=== PATIENT | male | born 1980 | race Caucasian/White ===

== ENCOUNTER 2018-05-02 11:57 | Inpatient (IN) | payer OTHER ==
[2018-05-02 15:23] VITALS: BMI 25.1
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
[2018-05-02] MEDS ORDERED: MAGNESIUM HYDROX 2400MG/30ML ORAL SUSPENSION 30 ML CUP PO PRN (20:20)
[2018-05-02] MEDS ORDERED: NICOTINE POLACRILEX 2 MG GUM BUC PRN (20:20)
[2018-05-02] MEDS ORDERED: MAG HYDROX/AL HYDROX/SIMETH 30 ML UNIT-DOSE CUP PO PRN (20:20)
[2018-05-02] MEDS ORDERED: ACETAMINOPHEN 325 MG TABLET (FP) PO PRN (20:20)
[2018-05-02] MEDS ORDERED: MENTHOL/PHENOL 1 EACH UD MM PRN (20:20)
[2018-05-02] MEDS ORDERED: chlordiazePOXIDE HCL 25 MG CAPSULE PO PRN (20:20)
[2018-05-02] MEDS ORDERED: P-EPHED 60MG/TRIPROLIDI 2.5MG TABLET PO PRN (20:20)
[2018-05-02] MEDS ORDERED: LOPERAMIDE HCL 2 MG CAPSULE PO PRN (20:20)
[2018-05-02] MEDS ORDERED: guaiFENesin/D-METHORPHAN HB 10 ML UNIT-DOSE CUPS PO PRN (20:20)
[2018-05-02] MEDS ORDERED: IBUPROFEN 400 MG TABLET (FP) PO PRN (20:20)
[2018-05-02] MEDS ORDERED: hydrOXYzine PAMOATE 50 MG CAPSULE (FP) PO PRN (20:20)
[2018-05-02] MEDS ORDERED: MAGNESIUM CITRATE 300 ML BOTTLE PO PRN (20:20)
[2018-05-02] MEDS ORDERED: MELATONIN 5 MG TABLETS PO PRN (22:00)
[2018-05-02] MEDS: chlordiazePOXIDE HCL 25 MG CAPSULE PO SCH (22:42)
[2018-05-02] MEDS: THIAMINE HCL 100 MG TABLET (FP) PO SCH (22:42)
[2018-05-03 02:57] LABS: URINE APPEARANCE CLOUDY; URINE BILIRUBIN NEGATIVE (<2.0 mg/dL); URINE COLOR YELLOW; URINE GLUCOSE (UA) NEGATIVE (NEGATIVE); URINE KETONE NEGATIVE (NEGATIVE); URINE LEUK ESTERASE NEGATIVE (NEGATIVE); URINE NITRITE NEGATIVE (NEGATIVE); URINE PROTEIN NEGATIVE (NEGATIVE)
[2018-05-03] MEDS: chlordiazePOXIDE HCL 25 MG CAPSULE PO SCH ×4 (05:16→22:23)
--- NOTE | 2018-05-03 08:09 | CONSULT ---
[facility] Psychiatric Consult - Data Date of interview: 05/03/18 Admission source: [facility] Identifying data: This is 38 years old male, single, nomeless, unemployed with no income, with history of psychiatrric hospitalizations, history of Schizophrenia, history of Alcohol, Cocaine, K-2, Nicotine and PCP dependence. Patient reports Alcohol withdrawal symptoms and seeking for detox. Substance Abuse History: Urine Drug Screen Results: AIDE-Cocaine, PCP- Phencyclidine. Smoking history: Current every day smoker. Have you smoked in the past 12 months: Yes. Aproximately how many cigarettes per day: 10. Cigars Per Day: 0. Initiated information on smoking cessation: Yes. 'Breaking Loose' booklet given: 05/02/18. - Substance & Tx. History. Hx Alcohol Use: Yes. Hx Substance Use: Yes. Substance Use Type: Alcohol, Cocaine, Tranquilizers (PCP). Hx Substance Use Treatment: Yes ([facility]). - Substances Abused. Alcohol. Route: Oral. Frequency: Daily. Amount used: 6 PACKS. Age of first use: 18. Date of Last Use: 05/02/18. K2. Route: Smoking. Frequency: Daily. Amount used: 2 BLUNTS. Age of first use: 21. Date of Last Use: . COCAINE. Route: Inhalation. Frequency: 1-2 times per week. Amount used: 1/2 GM. Age of first use: 16. Date of Last Use: 04/26/18 Medical History: Stuttering Psychiatric History: Patient reports to carry Schizophrenia with most recent psychiatric admission on 2 months ago for few days at [facility] for safety, reports taking prior to admission: Seroquel 300mg po qhs. \Patient denies suicidal and homicidal history, as per compuiter there is a hsuicidal unclear history. Physical/Sexual Abuse/Trauma History: Denies Additional Comment: Urine Drug Screen Results: AIDE-Cocaine, PCP-Phencyclidine. Seroquel 300mg po qhs Mental Status Exam - Mental Status Exam Alert and Oriented to: Person Cognitive Function: Fair Patient Appearance: Unkempt Mood: Sad Affect: Flat Patient Behavior: Sedated Speech Pattern: Delayed Voice Loudness: Mildly Soft/Quiet Thought Process: Goal Oriented Thought Disorder: Being Controlled Hallucinations: Denies Suicidal Ideation: Denies Homicidal Ideation: Denies Insight/Judgement: Fair Sleep: Difficulty falling asleep Appetite: Fair Muscle strength/Tone: Mild Hypotonicity Gait/Station: Shuffling Additional Comments: Seroquel 300mg po qhs Psychiatric Findings - Problem List ([place] 1, 2,3) (1) Schizophrenia Current Visit: Yes Status: Suspected (2) Opioid dependence with withdrawal Current Visit: Yes Status: Acute (3) Cocaine abuse, uncomplicated Current Visit: Yes Status: Chronic (4) Nicotine dependence Current Visit: Yes Status: Chronic Qualifiers: Nicotine product type: cigarettes Substance use status: uncomplicated Qualified Code(s): F17.210 - Nicotine dependence, cigarettes, uncomplicated (5) PCP (phencyclidine) abuse Current Visit: Yes Status: Chronic (6) Stuttering Current Visit: Yes Status: Chronic (7) Substance induced mood disorder Current Visit: Yes Status: Suspected (8) Substance-induced sleep disorder Current Visit: Yes Status: Suspected - Initial Treatment Plan Initial Treatment Plan: Seroquel 300mg po qhs
--- NOTE | 2018-05-03 10:30 | EKG ---
Test Reason : Blood Pressure : / mmHG Vent. Rate : 070 BPM Atrial Rate : 070 BPM P-R Int : 130 ms QRS Dur : 082 ms QT Int : 434 ms P-R-T Axes : 070 064 059 degrees QTc Int : 468 ms SINUS RHYTHM WITH PREMATURE SUPRAVENTRICULAR COMPLEXES OTHERWISE NORMAL ECG NO PREVIOUS ECGS AVAILABLE Confirmed by JUNG BELTRAN MD ([id number]) on 05/03/2018 10:30:10 AM Referred By: Confirmed By:JUNG BELTRAN MD
[2018-05-03] MEDS: PRENATAL VITAMINS W/ FOLIC ACID TABLET (FP) PO SCH (10:49)
[2018-05-03] MEDS: NICOTINE 14 MG/24 HOURS TOPICAL PATCH TD SCH (10:49)
[2018-05-03 10:50] LABS: HEMATOCRIT 40.5 % (35.4-49); HEMOGLOBIN 13.8 GM/dL (11.7-16.9); MCH 33.7 pg (25.7-33.7); MEAN CELL VOLUME 99.1 fl (80-96); MEAN PLT VOLUME 7.7 fl (7.5-11.1); PLATELET COUNT 199 K/MM3 (134-434); RBC 4.09 M/mm3 (4.00-5.60); RDW 12.9 % (11.9-15.9); WHITE BLOOD COUNT 5.1 K/mm3 (4.0-10.0)
[2018-05-03 11:32] LABS: CHLORIDE 107 mmol/L (98-107); POTASSIUM 3.7 mmol/L (3.5-5.1); SODIUM 145 mmol/L (136-145)
[2018-05-03 12:12] LABS: ALBUMIN 3.6 g/dl (3.4-5.0); ALK PHOS 49 U/L (45-117); ANION GAP 14 (8-16); BILIRUBIN,TOTAL 0.5 mg/dL (0.2-1.0); BLOOD UREA NITROGEN 12 mg/dL (7-18); CALCIUM 8.8 mg/dL (8.5-10.1); CO2 24 mmol/L (21-32); CREATININE 0.7 mg/dL (0.7-1.3); GLUCOSE,RANDOM 126 mg/dL (74-106); SGOT/AST 21 U/L (15-37); SGPT/ALT 29 U/L (12-78); TOT PROT 6.3 g/dl (6.4-8.2)
--- NOTE | 2018-05-03 13:15 | PN ---
S CIWA - CIWA Score Nausea/Vomitin Muscle Tremors: 3 Anxiety: 3 Agitation: 2 Paroxysmal Sweats: 1-Minimal Palms Moist Orientation: 0-Oriented Tacttile Disturbances: 1-Very Mild Itch/Numbness Auditory Disturbances: 1-Very Mild Visual Disturbances: 0-None Headache: 2-Mild CIWA-Ar Total Score: 16 S Progress Note (SOAP) Subjective: alert,irritable,anxious,interrupted sleep,tremor Objective: 05/03/18 13:13 Vital Signs Temperature 97.9 F 05/03/18 09:30 Pulse Rate 71 05/03/18 09:30 Respiratory Rate 20 05/03/18 09:30 Blood Pressure 111/59 05/03/18 09:30 O2 Sat by Pulse Oximetry (%) ekg nsr pac qt/qtc 432/468 Laboratory Last Values WBC 5.1 K/mm3 (4.0-10.0) 05/03/18 07:30 RBC 4.09 M/mm3 (4.00-5.60) 05/03/18 07:30 Hgb 13.8 GM/dL (11.7-16.9) 05/03/18 07:30 Hct 40.5 % (35.4-49) 05/03/18 07:30 MCV 99.1 fl (80-96) H 05/03/18 07:30 MCH 33.7 pg (25.7-33.7) 05/03/18 07:30 MCHC 34.0 g/dl (32.0-35.9) 05/03/18 07:30 RDW 12.9 % (11.9-15.9) 05/03/18 07:30 Plt Count 199 K/MM3 (134-434) 05/03/18 07:30 MPV 7.7 fl (7.5-11.1) 05/03/18 07:30 Sodium 145 mmol/L (136-145) 05/03/18 07:30 Potassium 3.7 mmol/L (3.5-5.1) 05/03/18 07:30 Chloride 107 mmol/L (98-107) 05/03/18 07:30 Carbon Dioxide 24 mmol/L (21-32) 05/03/18 07:30 Anion Gap 14 (8-16) 05/03/18 07:30 BUN 12 mg/dL (7-18) 05/03/18 07:30 Creatinine 0.7 mg/dL (0.7-1.3) 05/03/18 07:30 Creat Clearance w eGFR > 60 (>60) 05/03/18 07:30 Random Glucose 126 mg/dL (74-106) H 05/03/18 07:30 Calcium 8.8 mg/dL (8.5-10.1) 05/03/18 07:30 Total Bilirubin 0.5 mg/dL (0.2-1.0) 05/03/18 07:30 AST 21 U/L (15-37) 05/03/18 07:30 ALT 29 U/L (12-78) 05/03/18 07:30 Alkaline Phosphatase 49 U/L (45-117) 05/03/18 07:30 Total Protein 6.3 g/dl (6.4-8.2) L 05/03/18 07:30 Albumin 3.6 g/dl (3.4-5.0) 05/03/18 07:30 Urine Color Yellow 05/02/18 22:30 Urine Appearance Cloudy 05/02/18 22:30 Urine pH 7.0 (5.0-8.0) 05/02/18 22:30 Ur Specific [place] 1.018 (1.001-1.035) 05/02/18 22:30 Urine Protein Negative (NEGATIVE) 05/02/18 22:30 Urine Glucose (UA) Negative (NEGATIVE) 05/02/18 22:30 Urine Ketones Negative (NEGATIVE) 05/02/18 22:30 Urine Blood Negative (NEGATIVE) 05/02/18 22:30 Urine Nitrite Negative (NEGATIVE) 05/02/18 22:30 Urine Bilirubin Negative (<2.0 mg/dL) 05/02/18 22:30 Urine Urobilinogen 2.0 mg/dL (0.2-1.0) 05/02/18 22:30 Ur Leukocyte Esterase Negative (NEGATIVE) 05/02/18 22:30 Assessment: 05/03/18 13:15 withdrawal symptom Plan: continue detox,bgm monitoring
[2018-05-03] MEDS: THIAMINE HCL 100 MG TABLET (FP) PO SCH (22:23)
[2018-05-03] MEDS: QUEtiapine FUMARATE 300 MG TABLET PO SCH (22:23)
[2018-05-04] MEDS: chlordiazePOXIDE HCL 25 MG CAPSULE PO SCH ×3 (06:21→19:39)
[2018-05-04] MEDS: PRENATAL VITAMINS W/ FOLIC ACID TABLET (FP) PO SCH (10:27)
[2018-05-04] MEDS: NICOTINE 14 MG/24 HOURS TOPICAL PATCH TD SCH (10:27)
--- NOTE | 2018-05-04 12:05 | PN ---
S CIWA - CIWA Score Nausea/Vomitin Muscle Tremors: 3 Anxiety: 2 Agitation: 2 Paroxysmal Sweats: 1-Minimal Palms Moist Orientation: 0-Oriented Tacttile Disturbances: 1-Very Mild Itch/Numbness Auditory Disturbances: 1-Very Mild Visual Disturbances: 0-None Headache: 2-Mild CIWA-Ar Total Score: 15 S Progress Note (SOAP) Subjective: alert,irritable,anxious,interrupted sleep,tremor Objective: 05/04/18 12:03 Vital Signs Temperature 97.7 F 05/04/18 10:34 Pulse Rate 66 05/04/18 10:34 Respiratory Rate 16 05/04/18 10:34 Blood Pressure 108/60 05/04/18 10:34 O2 Sat by Pulse Oximetry (%) Laboratory Results - last 24 hr 05/03/18 05/03/18 05/03/18 07:30 07:30 16:45 Carbon Dioxide 24 Anion Gap 14 BUN 12 Creatinine 0.7 Creat Clearance w eGFR > 60 POC Glucometer 91 Random Glucose 126 H Fasting Glucose Calcium 8.8 Total Bilirubin 0.5 AST 21 ALT 29 Alkaline Phosphatase 49 Total Protein 6.3 L Albumin 3.6 RPR Titer Nonreactive 05/04/18 05/04/18 06:24 07:00 Carbon Dioxide Anion Gap BUN Creatinine Creat Clearance w eGFR POC Glucometer 122 Random Glucose Fasting Glucose 83 Calcium Total Bilirubin AST ALT Alkaline Phosphatase Total Protein Albumin RPR Titer fasting glucose is 83 Assessment: 05/04/18 12:04 withdrawal symptom Plan: continue detox,d/c bgm
[2018-05-04] MEDS: QUEtiapine FUMARATE 300 MG TABLET PO SCH (23:16)
[2018-05-04] MEDS: chlordiazePOXIDE 5 MG CAPSULE PO SCH (23:17)
[2018-05-04] MEDS: THIAMINE HCL 100 MG TABLET (FP) PO SCH (23:17)
[2018-05-05] MEDS: chlordiazePOXIDE 5 MG CAPSULE PO SCH ×3 (06:25→18:11)
[2018-05-05] MEDS: PRENATAL VITAMINS W/ FOLIC ACID TABLET (FP) PO SCH (11:06)
[2018-05-05] MEDS: NICOTINE 14 MG/24 HOURS TOPICAL PATCH TD SCH (11:07)
--- NOTE | 2018-05-05 11:25 | PN ---
S Progress Note (SOAP) Subjective: alert,interrupted sleep, Objective: 05/05/18 11:24 Vital Signs Temperature 98.1 F 05/05/18 09:19 Pulse Rate 90 05/05/18 09:19 Respiratory Rate 18 05/05/18 09:19 Blood Pressure 134/74 05/05/18 09:19 O2 Sat by Pulse Oximetry (%) Assessment: 05/05/18 11:24 withdrawal symptom Plan: continue detox,discharge in am
[2018-05-05] MEDS: QUEtiapine FUMARATE 300 MG TABLET PO SCH (22:46)
[2018-05-05] MEDS: THIAMINE HCL 100 MG TABLET (FP) PO SCH (22:47)
[2018-05-05] MEDS: chlordiazePOXIDE HCL 10 MG CAPSULE PO SCH (22:51)
[2018-05-06] MEDS: chlordiazePOXIDE HCL 10 MG CAPSULE PO SCH (05:58)
[2018-05-06 06:28] VITALS: BP 100/58; PULSE 61; TEMP 97
--- NOTE | 2018-05-06 14:54 | PN ---
S Progress Note (SOAP) Subjective: Denies any complaints Objective: 05/06/18 14:53 A & ox 3 Vital Signs Temperature 97.0 F L 05/06/18 06:00 Pulse Rate 61 05/06/18 06:00 Respiratory Rate 18 05/06/18 06:00 Blood Pressure 100/58 05/06/18 06:00 O2 Sat by Pulse Oximetry (%) Assessment: 05/06/18 14:53 detox safely completed Plan: For discharge
--- NOTE | 2018-05-06 14:57 | DS ---
[facility] Detox Discharge Summary Admission Date: 05/02/18 Discharge Date: 05/06/18 - History Additional Comments: pt being discharged Pt is going [facility] Rehab Will also f/u with PMD Dr Kimbrough @ [facility] - Physical Exam Results Vital Signs: Vital Signs Temperature 97.0 F L 05/06/18 06:00 Pulse Rate 61 05/06/18 06:00 Respiratory Rate 18 05/06/18 06:00 Blood Pressure 100/58 05/06/18 06:00 O2 Sat by Pulse Oximetry (%) Pertinent Admission Physical Exam Findings: withdrawal sx - Treatment Patient has Accepted a Rehab Referral to: [facility] - Medication Discharge Medications: Ambulatory Orders Quetiapine Fumarate [Quetiapine Fumarate ER] 300 mg PO HS #30 tab.er.24h - Diagnosis (1) Alcohol dependence with uncomplicated withdrawal Status: Acute (2) Cocaine abuse, uncomplicated Status: Chronic (3) Nicotine dependence Status: Chronic Qualifiers: Nicotine product type: cigarettes Substance use status: uncomplicated Qualified Code(s): F17.210 - Nicotine dependence, cigarettes, uncomplicated (4) Stuttering Status: Chronic (5) Schizophrenia Status: Suspected - AMA Did Patient Leave Against Medical Advice: No
== END 2018-05-06 10:05 | disposition home or self-care (01) | DRG 774 ==
LOC: YASAS 11:57 → Y6N 19:04
PROVIDERS: ADMIT Surgery; ATTEND Surgery
PROC: HZ2ZZZZ Detoxification Services for Substance Abuse Treatment (ICD-10-PCS; principal; 2018-05-02)
DX: F10.230 Alcohol dependence with withdrawal, uncomplicated (principal); F14.10 Cocaine abuse, uncomplicated; F16.10 Hallucinogen abuse, uncomplicated; F17.210 Nicotine dependence, cigarettes, uncomplicated; F20.9 Schizophrenia, unspecified; F80.81 Childhood onset fluency disorder; F19.24 Other psychoactive substance dependence with psychoactive substance-induced mood disorder; F19.282 Other psychoactive substance dependence with psychoactive substance-induced sleep disorder
CPT/HCPCS: 36415; 80053; 81003; 82947; 82962; 85027; 86593; 93005; 93010